=== PATIENT | male | born 1975 | race Hispanic/Latino ===

== ENCOUNTER → 2018-12-20 | Outpatient (CLI) | payer OTHER ==
--- NOTE | 2018-12-20 22:53 | Diagnostic Imaging Report ---
TECHNIQUE: Magnetic resonance imaging of the RIGHT ANKLE was performed WITHOUT injected contrast. COMPARISON: None available. HISTORY: Right ankle pain FINDINGS: LIGAMENTS: Medial Complex: Deltoid intact. Lateral Complex: Tibiofibular ligaments intact. Subacute partial tear of the anterior talofibular and calcaneofibular ligaments. TENDONS: Medial: Intact Lateral: Intact Anterior: Intact Achilles: Intact BONES: Mild edema in the posteromedial talus No acute fracture or osteonecrosis. JOINTS: Cartilage: No focal defect is identified involving the tibiotalar joint. Other: Fluid within the joints is within physiologic limits. SOFT TISSUES: Otherwise, unremarkable. IMPRESSION: Subacute partial tearing of the anterior talofibular and calcaneofibular ligaments. Mild posteromedial talar dome contusion. Signed by: Dr. Terrance Urbano M.D. on 12/20/2018 10:50 PM
== END ==
LOC: MRI 17:05
PROVIDERS: ATTEND Podiatrist Foot & Ankle Surgery
DX: M25.571 Pain in right ankle and joints of right foot (principal); S93.431A Sprain of tibiofibular ligament of right ankle, initial encounter; S93.411A Sprain of calcaneofibular ligament of right ankle, initial encounter; S93.491A Sprain of other ligament of right ankle, initial encounter; R26.2 Difficulty in walking, not elsewhere classified; S90.01XA Contusion of right ankle, initial encounter

== ENCOUNTER → 2019-01-13 | Day surgery (SDC) | payer OTHER ==
[2019-01-11 15:31] LABS: BASOPHILS % 0.4 % (0.0-1.0); EOSINOPHILS # (AUTO) 0.2 (0.0-0.4); EOSINOPHILS % 1.9 % (0.0-6.0); HEMATOCRIT 44.5 % (38.2-49.6); HEMOGLOBIN 15.4 g/dL (14.0-18.0); LYMPHOCYTES % 24.7 % (18.0-39.1); MEAN CORPUSCULAR HEMOGLOBIN 31.2 pg (28-32); MEAN CORPUSCULAR HGB CONC 34.6 g/dL (31-35); MEAN CORPUSCULAR VOLUME 90.1 fL (81-99); MONOCYTES # (AUTO) 0.4 (0.2-0.8); MONOCYTES % 5.4 % (4.4-11.3); NEUTROPHILS # (AUTO) 5.4 (2.1-6.9); PLATELET COUNT 157 x10e3/uL (140-360); RED BLOOD COUNT 4.94 x10e6/uL (4.3-5.7); RED CELL DISTRIBUTION WIDTH 13.2 % (11.7-14.4)
--- NOTE | 2019-01-11 16:04 | Diagnostic Imaging Report ---
EXAMINATION: CHEST 2 VIEWS INDICATION: Pre-admit. COMPARISON: None FINDINGS: TUBES and LINES: None. LUNGS: Lungs are moderately inflated. There is no evidence of pneumonia or pulmonary edema. PLEURA: No pleural effusion or pneumothorax. HEART AND MEDIASTINUM: The cardiomediastinal silhouette is unremarkable. BONES AND SOFT TISSUES: No acute osseous abnormality. UPPER ABDOMEN: No free air under the diaphragm. IMPRESSION: No acute radiographic abnormality. Signed by: Dr. Mark Rodriguez MD on 01/11/2019 4:01 PM
[~2019-01-13] MED LIST: ACETAMINOPHEN 1000 MG/100 ML IV ONE; BUPIVACAINE HCL 0.5% INJ 30 ML VIAL INJ ONE; CEFAZOLIN SOD 1 GM/NS 50ML 50 ML IV ONE; DEXAMETHASONE SOD PHOS INJ 4 MG/ML VIAL ONE; FENTANYL CITRATE/PF 100MCG/2 ML INJ ONE; KETOROLAC TROMETHAMINE 30 MG/ML VIAL ONE; LABETALOL HCL 0 ML ONE; LEXAPRO10 MG PO; LIDOCAINE HCL 2% LOCAL INJ 5 ML SDV VIAL INJ ONE; LIPITOR20 MG; MIDAZOLAM HCL 2 MG/2 ML VIAL ONE; MUPIROCIN 2% OINT 22 GM TUBE ONE; ONDANSETRON HCL INJ 2MG/ML 2ML 2 MG/ML VIAL ONE; PROPOFOL IV EMULSION 10 MG/ML 20 ML VIAL ONE; SEVOFLURANE INHAL SOLN 250 ML PEN BTL ONE; WELLBUTRIN SR150 MG
--- OUTSIDE RECORDS SUMMARY | 2019-01-13 05:17 | XMS REPORT ---
Author Author [facility] Address Unknown Phone Unavailable Care Team Providers Care Wafer Fabrication Technician Name Role Phone Radha PATEL Unavailable Unavailable Problems This patient has no known problems. Allergies, Adverse Reactions, Alerts This patient has no known allergies or adverse reactions. Medications This patient has no known medications. Results Test Description Test Time Test Comments Text Results Atomic Results Result Comments CHEST 2 VIEWS 2019-01-11 15:58:00 [place] [address] Patient Name: LORENZO TAYLOR MR #: [id number] : 1975 Age/Sex: 43/M Req #: [id number] Adm Physician: Ordered by: ANA PATEL DPM Report #: [id number] Location: OR Room/Bed: Procedure: [id number] DX/CHEST 2 VIEWS Exam Date: 01/11/19 Exam Time: 1520 REPORT STATUS: Signed EXAMINATION: CHEST 2 VIEWS INDICATION: Pre-admit. COMPARISON: None FINDINGS: TUBES and LINES: None. LUNGS: Lungs are moderately inflated. There is no evidence of pneumonia or pulmonary edema. PLEURA: No pleural effusion or pneumothorax. HEART AND MEDIASTINUM: The cardiomediastinal silhouette is unremarkable. BONES AND SOFT TISSUES: No acute osseous abnormality. UPPER ABDOMEN: No free a ir under the diaphragm. IMPRESSION: No acute radiographic abnormality. Signed by: Dr. Cynthia Tomas MD on 01/11/2019 4:01 PM Dictated By: CYNTHIA TOMAS MD 160 Transcribed By: ANSHU on 01/11/19 160 COPY TO: ANA PATEL DPM MRI ANKLE RIGHT WO 2018-12-20 22:47:00 [place] [address] Patient Name: LORENZO TAYLOR MR #: [id number] : 1975 Age/Sex: 43/M Req #: [id number] [facility] Physician: Ordered by: ANA PATEL DPM Report #: [id number] Location: MRI Room/Bed: Procedure: [id number] MRI/MRI ANKLE RIGHT WO Exam Date: Exam Time: REPORT STATUS: Signed TECHNIQUE: Magnetic resonance imaging of the RIGHT ANKLE was performed WITHOUT injected contrast. COMPARISON: None available. HISTORY: Right ankle pain FINDINGS: LIGAMENTS: Medial Complex: Deltoid intact. Lateral Complex: Tibiofibular ligaments intact. Subacute partial tear of the anterior talofibular and calcaneofibular ligaments. TENDONS: Medial: Intact Lateral: Intact Anterior: Intact Achilles: Intact BONES: Mild edema in the posteromedial talus No acute fracture or osteonecrosis. JOINTS: Cartilage: No focal defect is identified involving the tibiotalar joint. Other: Fluid within the joints is within physiologic limits. SOFT TISSUES: Otherwise, unremarkable. IMPRESSION: Subacute partial tearing of the anterior talofibular and calcaneofibular ligaments. Mild posteromedial talar dome contusion. Signed by: Dr. Barak Montemayor M.D. on 12/20/2018 10:50 PM Dictated By: BARAK MONTEMAYOR MD 49 Transcribed By: ANSHU on 12/20/182249 COPY TO: ANA PATEL DPM
--- NOTE | 2019-01-13 07:43 | Operative Report ---
DATE OF PROCEDURE: 01/13/2019 SURGEON: Madisyn Gaitan DPM PREOPERATIVE DIAGNOSIS: Right ruptured anterior talofibular ligament. POSTOPERATIVE DIAGNOSIS: Right ruptured anterior talofibular ligament. PLANNED PROCEDURE: Right Brostrom procedure with lateral ankle ligament reconstruction. ANESTHESIA: General with a postoperative block consisting of 15 mL 0.5% Marcaine plain mixed with 1 mL of dexamethasone phosphate. HEMOSTASIS: Pneumatic thigh tourniquet set at 350 mmHg for a total time approximately 30 minutes. MATERIALS: G2 bone anchor, 2-0 Vicryl, 3-0 Vicryl, and 4-0 Prolene. ESTIMATED BLOOD LOSS: Less than 10 mL. PATHOLOGY: None. PROCEDURE NOTE: The patient was seen in the preoperative waiting room, where the correct procedure and site was identified. The patient was brought to the operating room, placed on the operating table in supine position. General anesthesia was initiated. At this time, a well-padded pneumatic tourniquet was placed about the patient's right thigh. The right foot, ankle, and leg was then scrubbed, prepped, and draped in the usual aseptic manner. The right foot, ankle, and leg was exsanguinated with an Esmarch bandage and the pneumatic thigh tourniquet was inflated to 350 mmHg for a total time of approximately 30 minutes. Attention was directed to the anterolateral aspect of the patient's right ankle, where a J-type incision was made starting at the distal aspect of the anterior fibula extending inferiorly to the inferior aspect of the fibula. Incision was carried through subcutaneous tissue them from deep or underlying structures. All vital neurovascular structures were identified and retracted medially and laterally and all bleeders were cauterized or ligated as deemed necessary. At this time, utilizing sharp and blunt dissection, the incision was carried down to the level of the ankle joint capsule, where the anterior talofibular ligament and the anterior capsule was identified and was noted to be attenuated with thickening. Incision was made through the ankle joint capsule and the anterior talofibular ligament to allow for good visualization of the ankle joint. The periosteum and anterolateral retinaculum was reflected off the distal tip of the fibula. Utilizing manufacture protocol, the G2 bone anchor was drilled, placed, noted to be functioning appropriately and the sutures were used to reapproximate the anterior talofibular ligament to the distal aspect of the fibula. The wound was then flushed with copious amounts of sterile saline mixed with bacitracin. Next, utilizing the suture from the G2 bone anchor, the Meredith modification was performed with a esxzb-vplk-anue type suture technique to reapproximate the anterolateral ankle capsule as well as the retinaculum. The ankle was held in a dorsiflexed and everted position during repair of the lateral ankle ligament. The subcutaneous tissue was reapproximated with 3-0 Vicryl and the skin was closed using one simple interrupted sutures with 4-0 Prolene. The incision site was then dressed with Adaptic, 4x4s, 4-inch Kerlix, 4 x 30 posterior splint, 4 inch Marcos wrap, and a 6 inch Marcos wrap. The patient tolerated procedure and anesthesia well. The patient was transferred to the postoperative recovery unit with vital signs stable and vascular status intact. The patient is monitored there for a short period of time before being sent home with the following written and oral instructions. 1. Keep the dressing clean, dry, and intact. 2. The patient is to remain nonweightbearing in a posterior splint to avoid any ambulation until being seen in the office. 3. The patient was given office number to try to contact us if any problems arise. KESHA Fuentes/LILY /[id number]
[2019-01-13 08:40] VITALS: BP 143/90
== END | disposition home or self-care (01) ==
LOC: OR 05:14
PROVIDERS: ATTEND Podiatrist Foot & Ankle Surgery
DX: S93.491A Sprain of other ligament of right ankle, initial encounter (principal); I10 Essential (primary) hypertension; F32.9 Major depressive disorder, single episode, unspecified; F17.210 Nicotine dependence, cigarettes, uncomplicated; X58.XXXA Exposure to other specified factors, initial encounter; Z01.810 Encounter for preprocedural cardiovascular examination; Z01.812 Encounter for preprocedural laboratory examination; Z01.818 Encounter for other preprocedural examination
CPT/HCPCS: 27695; 36415; 71046; 85025; 93005; C1713; J0131; J0690; J1100; J1885; J2001; J2250; J2405; J2704